=== PATIENT | female | born 1990 | race Caucasian/White ===

== ENCOUNTER 2019-06-19 07:32 | Inpatient (IN) | payer OTHER ==
[~2019-06-19] VITALS: Ht 160 cm; Wt 71.7 kg
== END 2019-06-21 13:53 | disposition home or self-care (01) | DRG 807 ==
LOC: OB/GYN 07:32 → LDR 07:32 → OB/GYN 12:20
PROVIDERS: ADMIT Obstetrics & Gynecology
PROC: 10E0XZZ Delivery of Products of Conception, External Approach (ICD-10-PCS; principal; 2019-06-19)
PROC: 0HQ9XZZ Repair Perineum Skin, External Approach (ICD-10-PCS; 2019-06-19)
PROC: 4A1HXCZ Monitoring of Products of Conception, Cardiac Rate, External Approach (ICD-10-PCS; 2019-06-19)
DX: O70.0 First degree perineal laceration during delivery (principal); Z37.0 Single live birth; Z3A.40 40 weeks gestation of pregnancy